=== PATIENT | female | born 1975 | race Caucasian/White ===

== ENCOUNTER 2023-09-02 11:20 | Emergency (ER) | payer OTHER, SELFPAY ==
[2023-09-02 11:25] VITALS: BP 129/79; PULSE 85; TEMP 37.3; O2SAT 99; BMI 23.8
--- NOTE | 2023-09-02 12:04 | ED.GENADUL1 ---
HPI HPI - General Adult General Chief complaint: Headache Stated complaint: HEADACHE/MIGRAINE Time Seen by Provider: 09/02/23 12:02 Source: patient Mode of arrival: walk-in Limitations: no limitations History of Present Illness HPI narrative: Patient is a 48-year-old female who is presenting to the ER today complaining of headache, nausea, and acute on chronic headache. Patient is been having symptoms Intermittently for a month. Patient does have a neurologist in [place]. Patient does have Toradol tablets at home that she's been using with little relief. is at bedside. Patient's had nausea without vomiting. 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 Patient has photophobia, no significant vision or hearing changes. Patient called neurology office today, it was recommended to come in to the Emergency Room for evaluation by neurology. Patient has an appointment on September 04 All systems are negative except as noted/marked. All systems reviewed and otherwise negative. Nurses note and vital signs reviewed and patient is not hypoxic. General: The patient appears well and in Mild distress secondary to not feeling well,. Patient is resting uncomfortably on cart. Patient is not toxic, lethargic, or listless Skin: Warm, dry, no pallor noted. There is no rash noted. No petechiae, purpura. Head: Normocephalic, atraumatic; No midline or paracervical tenderness to palpation. Full range of motion of cervical spinal no difficulty. No tenderness to palpation to bilateral frontal or maxillary sinuses. Eye: Normal conjunctiva, no drainage, EOMI. PERRL Ears, Nose, Mouth, and Throat: oral mucosa is moist. Nares patent. Mouth without vesicles. Cardiovascular: Regular Rate and Rhythm, no murmur, gallop, rub Respiratory: Patient is in no distress, no accessory muscle use, lungs are clear to auscultation, no wheezing, rales or rhonchi Back: non-tender, no CVA tenderness bilaterally to percussion. No CT LS midline pain GI: no tenderness Musculoskeletal: Patient has full range of motion of all of the extremities, no motor, sensory, or focal neurological deficits Neurological: A&O x4, normal speech Psychiatric: Cooperative Related Data Previous Rx's ?Medication ?Instructions ?Recorded prochlorperazine maleate 10 mg 10 mg PO Q12H PRN nausea and 09/02/23 tablet (Compazine) vomiting, headache 7 days #7 tabs Allergies Allergy/AdvReac Type Severity Reaction Status Date / Time No Known Drug Allergies Allergy Verified 09/02/23 11:25 Opioid HPI Opioid Management Most Recent Opioid Data: Last Pain Scale 1 09/02/23 13:13 Last ED Pain Assessment 09/02/23 13:13 Last MAR Pain Assessment 09/02/23 12:39 Exam Constitutional Vital Signs, click to edit/add: Last Vital Signs Temp 99.1 F 09/02/23 11:25 Pulse 85 09/02/23 11:25 Resp 20 09/02/23 11:25 BP 129/79 09/02/23 11:25 Pulse Ox 99 09/02/23 11:25 O2 Del Method Room Air 09/02/23 11:25 Course Vital Signs Vital signs: Vital Signs Temperature 99.1 F 09/02/23 11:25 Pulse Rate 85 09/02/23 11:25 Respiratory Rate 20 09/02/23 11:25 Blood Pressure 129/79 09/02/23 11:25 Pulse Oximetry 99 09/02/23 11:25 Oxygen Delivery Method Room Air 09/02/23 11:25 Temperature 99.1 F 09/02/23 11:25 Pulse Rate 85 09/02/23 11:25 Respiratory Rate 20 09/02/23 11:25 Blood Pressure 129/79 09/02/23 11:25 Pulse Oximetry 99 09/02/23 11:25 Oxygen Delivery Method Room Air 09/02/23 11:25 Medical Decision Making MDM Narrative Medical decision making narrative: Patient was given 1 L of IV fluid, and given IV Toradol and Compazine. Patient's headache was a 9/10 when she arrived, it was down to a 2/10 at discharge. Nausea has improved as well. Patient will follow-up at scheduled neurology appointment. Patient was given prescription for Compazine to help with nausea and headaches as well. Patient felt much better, was very thankful for help, patient was given a work note for today to. stated that Toradol injections have helped in the past, it asked me if I can give her prescription for this. Until patient have not heard of this prescription before to prescribe emergency room injections given at home, the patient may ask her neurologist her PCP if this is something that isn't indicated. Patient and understand. Discharge Plan Discharge Stand Alone Forms: Work/School Release, Portal Instructions Chief Complaint: Headache Clinical Impression: Headache, Nausea, Chronic headache Patient Disposition: Home, Self-Care Time of Disposition Decision: 13:48 Condition: Fair Prescriptions / Home Meds: New prochlorperazine maleate [Compazine] 10 mg tablet 10 mg PO Q12H PRN (Reason: nausea and vomiting, headache) 7 Days Qty: 7 0RF Print Language: Romanian Instructions: Chronic Pain (ED), Acute Headache (ED), Acute Nausea and Vomiting (ED) Additional Instructions: Use Compazine as needed at home for nausea, vomiting, or headache. Use Toradol as prescribed, see your neurologist as scheduled appointment on September 04 Referrals: Physician,Non-Staff, MD [Primary Care Provider] - 1 week Discharge Date/Time: 09/02/23 14:06
[2023-09-02] MEDS: ACETAMINOPHEN 500 MG TABLET 1000 MG PO (12:38)
[2023-09-02] MEDS: KETOROLAC TROMETHAMINE 30 MG/ML VIAL 15 MG IVP (12:39)
[2023-09-02] MEDS: 0.9 % SODIUM CHLORIDE 1,000 ML 999 ML IV (12:40)
[2023-09-02] MEDS: PROCHLORPERAZINE 10 MG/2 ML VIAL IV (12:40)
== END 2023-09-02 14:06 | disposition home or self-care (01) ==
PROVIDERS: Emergency Provider Emergency Medicine
DX: R51.9 Headache, unspecified (principal); R11.0 Nausea; G89.29 Other chronic pain
CPT/HCPCS: 96374; 96375; 99284